=== PATIENT | male | born 1990 | race American Indian/Alaskan Native ===

== ENCOUNTER 2017-04-16 17:38 | Emergency (ER) | payer SELFPAY ==
[2017-04-16 18:50] LABS: Bilirubin,Urine NEG (Negative); Blood,Urine LG (Negative); Ketones,Urine TR mg/dL (Negative); Leukocyte Esterase,Urine LG (Negative); Mucus,Urine 3+ /HPF; Nitrite,Urine NEG (Negative)
[2017-04-16 18:53] LABS: RBC,Urine > 182.0 /HPF (0.0-6.0); WBC,Urine > 182.0 /HPF (0.0-6.0)
[2017-04-16 19:30] LABS: Basophils % (Auto) 0.4 % (0.0-1.8); Eosinophils % (Auto) 0.4 % (0.0-4.3); Hemoglobin 15.1 gm/dl (11.8-15.2); Mean Corpuscular HGB Conc 33 % (32-34); Mean Corpuscular Hemoglobin 29 pg (28-32); Mean Corpuscular Volume 88 fl (84-94); Platelet Count 267 K/mm3 (140-440); Red Blood Count 5.21 M/mm3 (3.65-5.03); White Blood Count 9.6 K/mm3 (4.5-11.0)
[2017-04-16 19:41] LABS: Alanine Aminotransferase 15 units/L (7-56); Albumin 4.3 g/dL (3.9-5); Alkaline Phosphatase 74 units/L (35-129); Anion Gap 20 mmol/L; BUN/Creatinine Ratio 14.28; Blood Urea Nitrogen 10 mg/dL (9-20); Calcium 9.7 mg/dL (8.4-10.2); Carbon Dioxide 25 mmol/L (22-30); Chloride 100.9 mmol/L (98-107); Glucose 95 mg/dL (75-100); Sodium 142 mmol/L (137-145); Total Protein 8.7 g/dL (6.3-8.2)
[2017-04-16] MEDS ORDERED: MACROBID PO ONE (20:40)
[2017-04-16] MEDS ORDERED: XYLOCAINE 1% MPF 5 mL INFILTRATI ONE (20:40)
[2017-04-16] MEDS ORDERED: ZITHROMAX PO ONE (20:40)
[2017-04-16] MEDS ORDERED: ROCEPHIN IM ONE (20:40)
--- NOTE | 2017-04-16 20:44 | Emergency Department Report ---
HPI - General Chief Complaint: Urogenital-Male Time Seen by Provider: 04/16/17 20:01 - HPI HPI: Is a 26-year-old -Serbian male who presents emergency Department with complaint of a few days of painful urination and penile discharge. He is a sexually active male who says he does not always use protection. He denies any fever, nausea, vomiting or any abdominal discomfort. He has not taken anything for symptoms prior to presentation. The patient has a history of hypertension as well as presents with elevated blood pressure and says he is out of his blood pressure medications. He does not have a primary care doctor. No recent travel or sick contacts at home. ED Past Medical Hx - Past Medical History Previous Medical History?: Yes Hx Hypertension: Yes (no meds) Hx Renal Disease: Yes (Renal insufficiency) - Surgical History Past Surgical History?: No - Social History Smoking Status: Current Every Day Smoker Substance Use Type: Alcohol, Marijuana - Medications Home Medications: Home Medications Medication Instructions Recorded Confirmed Last Taken Type Nitrofurantoin [place]/M-Cryst 100 mg PO Q12HR #14 capsule 04/16/17 Unknown Rx [Macrobid CAP] amLODIPine [Norvasc] 5 mg PO DAILY #30 tab 04/16/17 Unknown Rx ED Review of Systems ROS: Stated complaint: POSS STD Other details as noted in HPI Comment: All other systems reviewed and negative Constitutional: denies: chills, fever Eyes: denies: eye pain, eye discharge, vision change ENT: denies: ear pain, throat pain Respiratory: denies: cough, shortness of breath, wheezing Cardiovascular: denies: chest pain, palpitations Gastrointestinal: denies: abdominal pain, nausea, diarrhea Genitourinary: dysuria, discharge. denies: urgency Musculoskeletal: denies: back pain, joint swelling, arthralgia Skin: denies: rash, lesions Neurological: denies: headache, weakness, paresthesias Physical Exam - Physical Exam Vital Signs: Vital Signs 04/16/17 18:07 Temperature 98.4 F Pulse Rate 95 H Respiratory 20 Rate Blood Pressure 178/118 O2 Sat by Pulse 100 Oximetry Physical Exam: GENERAL: The patient is well-developed well-nourished. HEENT: Normocephalic. Atraumatic. Extraocular motions are intact. Patient has moist mucous membranes. Pupils equal reactive to light bilaterally. NECK: Supple. Trachea is midline. CHEST/LUNGS: Clear to auscultation. There is no respiratory distress noted. HEART/CARDIOVASCULAR: Regular. There is no tachycardia. There is no gallop rub or murmur. ABDOMEN: Abdomen is soft, nontender. Patient has normal bowel sounds. There is no abdominal distention. SKIN: Skin is warm and dry. NEURO: The patient is awake, alert, and oriented. The patient is cooperative. The patient has no focal neurologic deficits. The patient has normal speech and gait. MUSCULOSKELETAL: There is no tenderness or deformity. There is no limitation range of motion. There is no evidence of acute injury. : Deferred ED Course Vital Signs 04/16/17 18:07 Temperature 98.4 F Pulse Rate 95 H Respiratory 20 Rate Blood Pressure 178/118 O2 Sat by Pulse 100 Oximetry ED Medical Decision Making - Lab Data Result diagrams: 04/16/17 18:56 04/16/17 18:56 - Medical Decision Making 26-year-old male presents the emergency department with concern for STD dysuria and some discharge. Patient deferred any genitourinary examination so I do not know what type of discharge there is warmth or any general lesions but the patient says that there are not. His labs show a urinary tract infection with significant white blood cell count and hematuria. With his concern for sexual promiscuity, he will be covered with 250 mg Rocephin and 1 g of azithromycin for possible gonorrhea and chlamydia. He also will be given a 7 day course of Macrobid for a urinary tract infection. Patient was found to have a low-grade fever so he was given a dose of Tylenol. The rest of his labs are unremarkable as there is no leukocytosis, electrolyte abnormalities, renal insufficiency or glucose abnormalities. Patient had some elevated blood pressure. He was given a dose of Catapres and upon reevaluation it is improved but still elevated. Discussed with the patient about staying away from any smoking or caffeinated products to assist with his blood pressure. He will be started on Norvasc and encouraged to keep a blood pressure log. He was given multiple referrals for primary care. - Differential Diagnosis urethritis, UTI, gonorrhea, chlamydia Critical Care Time: No Critical care attestation.: If time is entered above; I have spent that time in minutes in the direct care of this critically ill patient, excluding procedure time. ED Disposition Clinical Impression: Urethritis Hypertension Qualifiers: Hypertension type: essential hypertension Qualified Code(s): I10 - Essential ( primary) hypertension UTI (urinary tract infection) Qualifiers: Urinary tract infection type: acute cystitis Hematuria presence: with hematuria Qualified Code(s): N30.01 - Acute cystitis with hematuria Disposition: TO HOME OR SELFCARE Is pt being admited?: No Condition: Stable Instructions: Nonspecific Urethritis in Men (ED), Urinary Tract Infection in Men (ED), Hypertension (ED) Additional Instructions: These follow-up with a primary care physician in the next few days. Please try and quit smoking. Stay away from foods that are high in salt and caffeinated products to help with her blood pressure. Keep a blood pressure log. Take the antibiotics as prescribed. I started joint a blood pressure medication called Norvasc to be taken once daily. Return to the emergency department with any worsening of her symptoms or any acute distress. I have given you a referral for a local urologist, Dr. Tipton, to follow up regarding your urinary tract infection Prescriptions: amLODIPine [Norvasc] 5 mg PO DAILY #30 tab Nitrofurantoin [place]/M-Cryst [Macrobid CAP] 100 mg PO Q12HR #14 capsule Referrals: PRIMARY CAREMD [Primary Care Provider] - 3-5 Days MARIA FERNANDA TIPTON MD [Staff Physician] - 3-5 Days [facility] [Outside] - 3-5 Days [facility] [Outside] - 3-5 Days [facility] [Outside] - 3-5 Days Forms: STI Treatment and Prevention Time of Disposition: 23:03
[2017-04-16] MEDS ORDERED: TYLENOL PO ONE (21:26)
[2017-04-16] MEDS ORDERED: CATAPRES PO ONE (21:26)
[2017-04-16 23:16] VITALS: BP 164/108
== END 2017-04-16 23:24 | disposition home or self-care (01) ==
LOC: ED 17:38
DX: N34.2 Other urethritis (principal); I10 Essential (primary) hypertension; N30.01 Acute cystitis with hematuria; F17.200 Nicotine dependence, unspecified, uncomplicated; F12.10 Cannabis abuse, uncomplicated
CPT/HCPCS: 36415; 80053; 81001; 85025; 96372; 99283; J0696